=== PATIENT | female | born 1965 | race Caucasian/White ===

== ENCOUNTER 2017-01-17 17:02 | Emergency (ER) | payer BC, OTHER ==
[~2017-01-17] VITALS: Ht 160 cm; Wt 70.0 kg
[2017-01-17 17:05] VITALS: Ht 160 cm; Wt 70.0 kg
[2017-01-17] MEDS ORDERED: HYDROmorphONE 1 MG/ML SYG IV STA (19:30)
[2017-01-17] MEDS ORDERED: ONDANSETRON 4 MG INJ IV STA (19:30)
[2017-01-17 19:39] LABS: BASOPHIL # 0.1 10^3/ul (0.0-0.1); BASOPHILS % 0.7 % (0.0-2.0); EOSINOPHILS % 0.5 % (0.0-7.0); HEMATOCRIT 39.5 % (37.0-47.0); HEMOGLOBIN 13.4 g/dl (12.0-16.0); LYMPHOCYTES # 3.7 10^3/ul (0.8-2.9); LYMPHOCYTES % 49.9 % (15.0-51.0); MEAN CORPUSCULAR HEMOGLOBIN 28.3 pg (29.0-33.0); MEAN CORPUSCULAR HGB CONC 33.9 g/dl (32.0-37.0); MEAN CORPUSCULAR VOLUME 83.3 fl (82.0-101.0); MEAN PLATELET VOLUME 10.7 fl (7.4-10.4); MONOCYTE # 0.6 10^3/ul (0.3-0.9); MONOCYTES % 7.9 % (0.0-11.0); NEUTROPHILS % 40.7 % (39.0-77.0); PLATELET COUNT 277 10^3/UL (140-415); RED BLOOD COUNT 4.74 10^6/ul (4.20-5.40); RED CELL DISTRIBUTION WIDTH 13.4 % (11.5-14.5); WHITE BLOOD COUNT 7.3 10^3/ul (4.8-10.8)
[2017-01-17 20:01] LABS: ALBUMIN 4.7 g/dl (3.3-4.9); ALBUMIN/GLOBULIN RATIO 1.38; BILIRUBIN,INDIRECT 0.4 mg/dl (0-1.1); BILIRUBIN,TOTAL 0.4 mg/dl (0.2-1.3); CALCIUM 9.7 mg/dl (8.4-10.2); CREATININE 0.64 mg/dl (0.44-1.00); TOTAL PROTEIN 8.1 g/dl (6.1-8.1)
--- NOTE | 2017-01-17 20:01 | ERD ---
ER Documentation Chief Complaint Date/Time DATE: 01/17/17 TIME: 20:00 Chief Complaint 01/24 abd pain with nausea 8 days HPI This a 51-year-old female who is complaining of pain in left upper quadrant and left flank for the past 2 weeks on a daily basis. She said the pain is constantly there and gets worse after food most of the time.. Pain does not radiate seems to be located in the left upper quadrant and does have pain directly behind her in the left back. She has no hematuria or dysuria no history of kidney stones. She does have occasional reflux. No chest pain or shortness of breath or cough Patient had a recent EGD and has a report with her with photos. Patient has a diagnosis of severe distal esophagitis and gastritis. Biopsies were taken for David's esophagitis as well as H. pylori which are currently pending ROS All systems reviewed and are negative except as per history of present illness. Medications Home Meds Active Scripts Hydrocodone/Acetaminophen (Brethren 10-325 Tablet) 1 Each Tablet, 1 TAB PO Q6H Y for PAIN, #15 TAB Prov:JOLANTA GUZMAN DO 01/17/17 Lidocaine (Lidocaine Viscous) 100 Ml Soln, 15 ML MM every 3-4 hours, #150 Prov:JOLANTA GUZMAN DO 01/17/17 Reported Medications Pantoprazole* (Pantoprazole*) 40 Mg Tablet.dr, 40 MG PO AC BREAKFAST, TAB 01/17/17 Ranitidine Hcl* (Ranitidine Hcl*) 300 Mg Tablet, 300 MG PO BID, #30 TAB 01/17/17 Allergies Allergies: Coded Allergies: No Known Allergy (Unverified , 01/17/17) PMhx/Soc History of Surgery: Yes (RT ARMPIT ) Anesthesia Reaction: No Hx Neurological Disorder: No Hx Respiratory Disorders: No Hx Cardiac Disorders: No Hx Psychiatric Problems: No Hx Miscellaneous Medical Probl: Yes (GERD) Hx Alcohol Use: No Hx Substance Use: No Hx Tobacco Use: No Smoking Status: Never smoker FmHx Family History: No coronary disease Physical Exam Vitals Vital Signs Date Time Temp Pulse Resp B/P Pulse Ox O2 Delivery O2 Flow Rate FiO2 01/17/17 21:53 98.7 78 15 131/70 99 Room Air 01/17/17 20:30 72 14 150/88 99 Room Air 01/17/17 19:14 98.7 65 14 155/97 99 Room Air 01/17/17 17:05 99.0 88 19 186/88 99 Physical Exam Const: Well-developed, well-nourished Head: Atraumatic, normocephalic Eyes: Normal Conjunctiva, PERRLA, EOMI, normal sclera, no nystagmus ENT: Normal External Ears, Nose and Mouth, moist mucus membranes. Neck: Full range of motion. No meningismus, no lymphadenopathy. Resp: Clear to auscultation bilaterally, no wheezing, rhonchi, rales Cardio: Regular rate and rhythm, no murmurs, S1 S2 present Abd: Soft, n left upper quadrant tenderness is mild to moderate in nature along with left flank and left CVA tenderness non distended. Normal bowel sounds, no guarding or rebound, no pulsitile abdominal masses or bruits Skin: No petechiae or rashes, no ecchymosis , no maculopapular rash Back: No midline or flank tenderness Ext: No cyanosis, or edema, FROM x 4, normal inspection, neurovascularly intact x 4 Neur: Awake and alert, STR 5/5 x 4, sensation intact x 4, no focal findings, cerebellum intact Psych: Normal Mood and Affect Result Diagram: 01/17/17192901/17/171929 Results 24 hrs Laboratory Tests Test 01/17/17 19:30 01/17/17 19:55 White Blood Count 7.310^3/ul Red Blood Count 4.7410^6/ul Hemoglobin 13.4g/dl Hematocrit 39.5% Mean Corpuscular Volume 83.3fl Mean Corpuscular Hemoglobin 28.3pg Mean Corpuscular Hemoglobin Concent 33.9g/dl Red Cell Distribution Width 13.4% Platelet Count 09612^3/UL Mean Platelet Volume 10.7fl Neutrophils % 40.7% Lymphocytes % 49.9% Monocytes % 7.9% Eosinophils % 0.5% Basophils % 0.7% Nucleated Red Blood Cells % 0.0/100WBC Neutrophils # 3.010^3/ul Lymphocytes # 3.710^3/ul Monocytes # 0.610^3/ul Eosinophils # 0.010^3/ul Basophils # 0.110^3/ul Nucleated Red Blood Cells # 0.010^3/ul Sodium Level 146mmol/L Potassium Level 4.0mmol/L Chloride Level 106mmol/L Carbon Dioxide Level 25mmol/L Anion Gap 19 Blood Urea Nitrogen 9mg/dl Creatinine 0.64mg/dl Glucose Level 86mg/dl Calcium Level 9.7mg/dl Total Bilirubin 0.4mg/dl Direct Bilirubin 0.00mg/dl Indirect Bilirubin 0.4mg/dl Aspartate Amino Transf (AST/SGOT) 34IU/L Alanine Aminotransferase (ALT/SGPT) 41IU/L Alkaline Phosphatase 90IU/L Total Protein 8.1g/dl Albumin 4.7g/dl Globulin 3.40g/dl Albumin/Globulin Ratio 1.38 Lipase 184U/L Urine Color STRAW Urine Clarity CLEAR Urine pH 6.0 Urine Specific [place] 1.009 Urine Ketones NEGATIVEmg/dL Urine Nitrite NEGATIVEmg/dL Urine Bilirubin NEGATIVEmg/dL Urine Urobilinogen NEGATIVEmg/dL Urine Leukocyte Esterase NEGATIVELeu/ul Urine Hemoglobin NEGATIVEmg/dL Urine Glucose NEGATIVEmg/dL Urine Total Protein NEGATIVEmg/dl Current Medications Medications (Trade) Dose Ordered Sig/Mehnaz Route PRN Reason Start Time Stop Time Status Last Admin Dose Admin Hydromorphone HCl (Dilaudid) 1 mg ONCE STAT IV 01/17/17 19:30 01/17/17 19:31 DC 01/17/17 20:04 Ondansetron HCl (Zofran Inj) 4 mg ONCE STAT IV 01/17/17 19:30 01/17/17 19:31 DC 01/17/17 20:03 Famotidine (Pepcid Iv) 20 mg ONCE STAT IV 01/17/17 21:51 01/17/17 21:52 DC 01/17/17 21:57 Miscellaneous Medication (Gi Cocktail (2)) 40 ml ONCE STAT PO 01/17/17 21:51 01/17/17 21:52 DC 01/17/17 22:06 Procedures/MDM PROCEDURE: CT abdomen and pelvis without contrast. CLINICAL INDICATION: left flank pain TECHNIQUE: CT scan of the abdomen and pelvis without contrast was performed on a multi-slice CT scanner. The patient was scanned without intravenous contrast. 3-D sagittal and coronal reformatted images were obtained from the axial source images. CTDI: 9.15 and DLP: 481.68 One or more of the following post reduction techniques were used: Automated exposure control. Adjustment of the mA and/or kV according to patient's size. Use of iterative reconstruction technique. COMPARISON: None. FINDINGS: Incidental images through the lung bases reveal no evidence of focal basilar consolidation or pleural effusion. The liver, spleen, gallbladder, pancreas and adrenal glands are unremarkable for noncontrast study. The kidneys are bilaterally symmetrical without evidence of hydronephrosis. There is no evidence of obstructive uropathy. No significant retroperitoneal adenopathy is identified. The abdominal aorta is intact. The stomach is partially collapsed but grossly unremarkable. There is no evidence of small bowel obstruction, appendicitis or diverticulitis. No free fluid or free intraperitoneal air is identified. Evaluation of the osseous structures reveals no acute change. IMPRESSION: 1. No acute abnormalities are identified. There is no evidence of obstructive uropathy, bowel obstruction, appendicitis or diverticulitis. RPTAT:AAJJ Russ Garcia Physician Date Time Electronically viewed and signed by Russ Garcia Physician on 01/17/2017 20: 17 MC/ CC: JOLANTA GUZMAN DO Patient received IV Pepcid as well as a GI cocktail. CAT scan does not show any acute process. Patient's pain is consistent with gastritis. Patient is already on omeprazole 40 mg a day we will add some viscous lidocaine and Brethren. I reviewed diet care with her and she is eating many foods that are acidic in nature and can make her symptoms worse Departure Diagnosis: Primary Impression: Gastritis Gastritis type: unspecified gastritis Chronicity: unspecified Gastritis bleeding: presence of bleeding unspecified Qualified Code: K29.70 - Gastritis , presence of bleeding unspecified, unspecified chronicity, unspecified gastritis type Condition: Stable JOLANTA GUZMAN DO Jan 17, 2017 20:01
[2017-01-17 20:14] LABS: ADD UMIC NO; UR ASCORBIC ACID NEGATIVE (NEGATIVE); UR BILIRUBIN (Dip) NEGATIVE (NEGATIVE); UR BLOOD (Dip) NEGATIVE (NEGATIVE); UR CLARITY CLEAR (CLEAR); UR COLOR STRAW (YELLOW); UR GLUCOSE (Dip) NEGATIVE (NEGATIVE); UR KETONES (Dip) NEGATIVE (NEGATIVE); UR LEUKOCYTE ESTERASE (Dip) NEGATIVE Leu/ul (NEGATIVE); UR NITRITE (Dip) NEGATIVE (NEGATIVE); UR SPECIFIC GRAVITY (Dip) 1.009 (1.003-1.030); UR TOTAL PROTEIN (Dip) NEGATIVE (NEGATIVE); UR UROBILINOGEN (Dip) NEGATIVE (NEGATIVE)
--- NOTE | 2017-01-17 20:18 | RADRPT ---
PROCEDURE: CT abdomen and pelvis without contrast. CLINICAL INDICATION: left flank pain TECHNIQUE: CT scan of the abdomen and pelvis without contrast was performed on a multi-slice CT [facility]. The patient was scanned without intravenous contrast. 3-D sagittal and coronal reformatted images were obtained from the axial source images. CTDI: 9.15 and DLP: 481.68 One or more of the following post reduction techniques were used: Automated exposure control. Adjustment of the mA and/or kV according to patient's size. Use of iterative reconstruction technique. COMPARISON: None. FINDINGS: Incidental images through the lung bases reveal no evidence of focal basilar consolidation or pleura l effusion. The liver, spleen, gallbladder, pancreas and adrenal glands are unremarkable for noncontrast study. The kidneys are bilaterally symmetrical without evidence of hydronephrosis. There is no evidence o f obstructive uropathy. No significant retroperitoneal adenopathy is identified. The abdominal aorta is intact. The stomach is partially collapsed but grossly unremarkable. There is no evidence of small bowel obs truction, appendicitis or diverticulitis. No free fluid or free intraperitoneal air is identified. Evaluation of the osseous structures reveals no acute change. IMPRESSION: 1. No acute abnormalities are identified. There is no evidence of obstructive uropathy, bowel obst ruction, appendicitis or diverticulitis. RPTAT:AAJJ Physician Nina Date Time Electronically viewed and signed by Physician Nina on 01/17/2017 20:17 /
[2017-01-17] MEDS ORDERED: RANI300T PO (21:21)
[2017-01-17] MEDS ORDERED: PANT40TA4 PO (21:22)
[2017-01-17] MEDS ORDERED: FAMOTIDINE 20 MG INJ IV STA (21:51)
[2017-01-17] MEDS ORDERED: LIDOCAINE/MYLANTA 40 ML BTL PO STA (21:51)
[2017-01-17] MEDS ORDERED: HYDR-902 PO (22:14)
[2017-01-17] MEDS ORDERED: LIDO20SO19 MM (22:14)
[2017-01-17 23:01] VITALS: BP 129/76; PULSE 72; RESP 14; TEMP 97.9
== END 2017-01-17 23:04 | disposition home or self-care (01) ==
LOC: E/R 17:02
DX: K29.70 Gastritis, unspecified, without bleeding (principal); R11.0 Nausea
CPT/HCPCS: 36415; 74176; 80053; 81003; 83690; 85025; 96374; 96375; 99285; J1170; J2405